=== PATIENT | male | born 1970 | race Hispanic/Latino ===

== ENCOUNTER 2017-04-15 13:31 | Observation (INO) | payer BC ==
--- NOTE | 2017-04-15 14:42 | ED PDOC ---
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 no prev sx. no cards no recent stress test or cardiac cath. Past Medical History Reviewed: Historical Data, Nursing Documentation, Vital Signs Vital Signs: Last Vital Signs Temp 97.8 F 04/15/17 13:44 Pulse 80 04/15/17 13:59 Resp 18 04/15/17 13:44 BP 137/102 H 04/15/17 13:59 Pulse Ox 97 04/15/17 14:42 - Medical History PMH: Arthritis (chronic back and shoulder pain), COPD, Fractures (right ankle fracture, left wrist fracture), Gastritis, GERD, Hyperlipidemia Denies: Chronic Kidney Disease - Family History Family History: States: Unknown Family Hx - Living Arrangements Living Arrangements: With Family - Social History Current smoker - smoking cessation education provided: No - Home Medications Home Medications: Ambulatory Orders Medication Instructions Recorded Omeprazole [Omeprazole] 40 mg PO DAILY 04/15/17 Simvastatin [Zocor] 20 mg PO HS 04/15/17 oxyCODONE [oxyCODONE Immediate 20 mg PO Q4H PRN 04/15/17 Release Tab] - Allergies Allergies/Adverse Reactions: Allergies Allergy/AdvReac Type Severity Reaction Status Date / Time No Known Allergies Allergy Verified 04/15/17 13:47 Review of Systems ROS Statement: Except As Marked, All Systems Reviewed And Found Negative Constitutional: Negative for: Fever, Chills Cardiovascular: Positive for: Chest Pain. Negative for: Palpitations Respiratory: Negative for: Cough, Shortness of Breath Gastrointestinal: Negative for: Nausea, Vomiting, Abdominal Pain Neurological: Negative for: Weakness, Numbness Physical Exam - Reviewed Nursing Documentation Reviewed: Yes Vital Signs Reviewed: Yes - Physical Exam Appears: Positive for: Uncomfortable Head Exam: Positive for: ATRAUMATIC, NORMAL INSPECTION, NORMOCEPHALIC Eye Exam: Positive for: Normal appearance, EOMI Neck: Positive for: Normal, Painless ROM, Supple Cardiovascular/Chest: Positive for: Regular Rate, Rhythm, Chest Non Tender. Negative for: Edema, Gallop, Murmur, Bradycardia, Tachycardia Respiratory: Positive for: Normal Breath Sounds. Negative for: Decreased Breath Sounds, Accessory Muscle Use, Crackles, Rales, Rhonchi, Stridor, Wheezing , Respiratory Distress Pulses-Radial (L): 2+ Pulses-Radial (R): 2+ Gastrointestinal/Abdominal: Positive for: Normal Exam, Bowel Sounds, Soft. Negative for: Tenderness Back: Positive for: Normal Inspection. Negative for: L CVA Tenderness, R CVA Tenderness Extremity: Positive for: Normal ROM. 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 Negative for: Motor/Sensory Deficits - ECG ECG: Positive for: Interpreted By Me ECG Rhythm: Positive for: Normal QRS, Normal ST Segment, Sinus Rhythm (78), ST/ T Changes (mild st elevation on 1mm in v2,) Interpretation Of Abn EKG: sent to dr ta for review with old ecg, no significant change. O2 Sat by Pulse Oximetry: 97 Pulse Ox Interpretation: Normal Disposition - Clinical Impression Clinical Impression: Acute chest pain - Patient ED Disposition Is Patient to be Admitted: No Counseled Patient/Family Regarding: Studies Performed, Diagnosis - Disposition Disposition: Transfer of Care Disposition Time: 15:00 Condition: STABLE Forms: [employer] (Georgian) Patient Signed Over To: Larry Carney
[2017-04-15 15:28] LABS: BASO # 0.1 K/uL (0.0-0.2); BASO % 0.6 % (0.0-2.0); EOS % 0.3 % (0.0-4.0); HEMOGLOBIN 15.8 g/dL (12.0-18.0); LYMPH # 4.2 K/uL (1.0-4.3); LYMPH % 34.1 % (20.0-40.0); MEAN CELL VOLUME 93.2 fl (80.0-94.0); MEAN CORPUSCULAR HEMOGLOBIN 31.4 pg (27.0-31.0); MEAN CORPUSCULAR HGB CONC 33.6 g/dL (33.0-37.0); MEAN PLATELET VOLUME 8.4 fl (7.2-11.7); MONO # 0.4 K/uL (0.0-0.8); MONO % 3.3 % (0.0-10.0); NEUT # 7.5 K/uL (1.8-7.0); NEUT % 61.7 % (50.0-75.0); NRBC % 0.2 % (0.0-0.0); RBC 5.03 Mil/uL (4.40-5.90); RED CELL DISTRIBUTION WIDTH 13.1 % (11.5-14.5); WHITE BLOOD COUNT 12.2 K/uL (4.8-10.8)
[2017-04-15 15:39] LABS: ALB/GLOB RATIO 1.4 (1.0-2.1); ALBUMIN 4.5 g/dL (3.5-5.0); ALT/SGPT 33 U/L (21-72); AST/SGOT 22 U/L (17-59); BLOOD UREA NITROGEN 15 mg/dl (9-20); GFR AFRICAN-AMERICAN > 60; GFR NON-AFRICAN AMERICAN > 60; LIPASE 168 U/L (23-300); MAGNESIUM 1.9 MG/DL (1.6-2.3)
[2017-04-15 15:50] LABS: B-TYPE NATRIURETIC PEPTIDE 25.3 pg/ml (0-450)
--- NOTE | 2017-04-15 16:05 | ED PDOC ---
- Laboratory Results Result Diagrams: 04/15/17 15:15 04/15/17 15:15 Interpretation Of Abn Labs: 12.2 wbc - ECG ECG: Positive for: Interpreted By Me, Viewed By Me ECG Rhythm: Positive for: Normal QRS, Normal ST Segment, Sinus Rhythm O2 Sat by Pulse Oximetry: 97 Pulse Ox Interpretation: Normal - Radiology X-Ray: Read By Radiologist X-Ray Interpretation: No Acute Disease - Progress ED Course And Treament: 1603: Took over care from Dr. Urban. Fu on labs and imaging. Here with chest pain. 1705: Stable. Spoke with [facility] resident. Will admit tele obs. Pt. is pain free. Hx of chol. AAOx3. Disposition - Clinical Impression Clinical Impression: Acute chest pain - POA Present On Arrival: None - Disposition Disposition: Hospitalized as Observation Patient Disposition Time: 17:05 Condition: FAIR
--- NOTE | 2017-04-15 16:06 | RAD ---
HISTORY: cp COMPARISON: Chest radiograph dated 03/28/2013. FINDINGS: LUNGS: No active pulmonary disease. PLEURA: No significant pleural effusion identified, no pneumothorax apparent. CARDIOVASCULAR: Normal. OSSEOUS STRUCTURES: Unchanged. VISUALIZED UPPER ABDOMEN: Normal. OTHER FINDINGS: None. IMPRESSION: No active disease.
[2017-04-15 16:18] LABS: URINE BILIRUBIN NEGATIVE (NEGATIVE); URINE BLOOD NEGATIVE (NEGATIVE); URINE CLARITY CLEAR (Clear); URINE COLOR YELLOW (YELLOW); URINE GLUCOSE (UA) NEG (Normal); URINE LEUKOCYTE ESTERASE NEG Leu/uL (Negative); URINE NITRATE NEGATIVE (NEGATIVE); URINE PROTEIN NEGATIVE (NEGATIVE); URINE UROBILINOGEN 0.2-1.0 mg/dL (0.2-1.0)
[2017-04-15 16:33] LABS: PARTIAL THROMBOPLASTIN TIME 38.5 Seconds (25.6-37.1); PROTHROMBIN TIME 10.5 Seconds (9.8-13.1)
[2017-04-15 16:44] LABS: OPIATES, UR POSITIVE (NEGATIVE)
[2017-04-15 16:45] LABS: PHENCYCLIDINE, UR NEGATIVE (NEGATIVE)
[2017-04-15 16:48] LABS: BARBITURATES, UR NEGATIVE (NEGATIVE); BENZODIAZEPINES, UR NEGATIVE (NEGATIVE)
--- NOTE | 2017-04-15 19:42 | CP.PCM.HP ---
<Amy Guillen - Last Filed: 04/15/17 23:40> History of Present Illness - History of Present Illness History of Present Illness: 47 yo ,m, PMhx/o COPD, heavy smoker, Chronic Arthritis of both shoulders present to ED c/o chest pain substernal started today in the afternoon 1pm at rest while he was in his office. Patient stated that chest pain started b/l subcostal and radiated to jaw, upper back and right arm, lasting for about 25 minutes, w/o associated symptoms, not related with any particular event. He denies fever, n,v,abd pain, pyrosis. Pain is not reproducible and no related with meals, deep inspiration or arms movements. Patient on evaluation in telemetry reports that pain subsided and what he needs is his pain medications for his chronic arthritis of shoulders and he reports that b/l shoulder pain is constant every day and he takes oxydodone 20 mg Q4h. reports that he has b/l rotator cuff injury. PMD: Dr Serra PMhx: COPD, heavy smoker, Chronic Arthritis Allergies: NKDA Meds: Oxydodone 20 mg Q4h, Lipitor 10 mg daily PSurgHx: R ankle, Left wrist. PSHx: +ETOH occs. No rect drugs, Heavy smoker 3PPD x 30 years. (does not want this information released to his insurance) ED Course VS: normal Labs: CBC: 12.2>15.8<282, APTT:38.5 trop x 1 neg . utox: +opioides Imaging: EKG: NSR. CXR: no active disease Present on Admission - Present on Admission Any Indicators Present on Admission: No History of DVT/PE: No History of Uncontrolled Diabetes: No Review of Systems - Cardiovascular Cardiovascular: As Per HPI, Chest Pain - Respiratory Respiratory: As Per HPI - Gastrointestinal Gastrointestinal: As Per HPI - Musculoskeletal Musculoskeletal: As Per HPI Past Patient History - Infectious Disease Hx of Infectious Diseases: None - Tetanus Immunizations Tetanus Immunization: Unknown - Past Medical History & Family History Past Medical History?: Yes - Past Social History Smoking Status: Heavy Smoker > 10 Cigarettes Daily - CARDIAC Hx Cardiac Disorders: No - PULMONARY Hx Chronic Obstructive Pulmonary Disease (COPD): Yes - NEUROLOGICAL Hx Neurological Disorder: No - HEENT Hx HEENT Problems: No - RENAL Hx Chronic Kidney Disease: No - ENDOCRINE/METABOLIC Hx Endocrine Disorders: No - HEMATOLOGICAL/ONCOLOGICAL Hx Blood Disorders: No - INTEGUMENTARY Hx Dermatological Problems: No - MUSCULOSKELETAL/RHEUMATOLOGICAL Hx Arthritis: Yes (chronic back and shoulder pain) Hx Fractures: Yes (right ankle fracture, left wrist fracture) - GASTROINTESTINAL Hx Gastritis: Yes - GENITOURINARY/GYNECOLOGICAL Hx Genitourinary Disorders: No - PSYCHIATRIC Hx Psychophysiologic Disorder: No Hx Substance Use: No - SURGICAL HISTORY Other/Comment: right ankle x3. left wrist - ANESTHESIA Hx Anesthesia: Yes Hx Anesthesia Reactions: No Hx Malignant Hyperthermia: No Meds Allergies/Adverse Reactions: Allergies Allergy/AdvReac Type Severity Reaction Status Date / Time No Known Allergies Allergy Verified 04/15/17 13:47 Physical Exam - Constitutional Appears: Non-toxic, No Acute Distress - Head Exam Head Exam: ATRAUMATIC, NORMOCEPHALIC - Eye Exam Eye Exam: Normal appearance - ENT Exam ENT Exam: Mucous Membranes Moist - Neck Exam Neck exam: Positive for: Normal Inspection - Respiratory Exam Respiratory Exam: Clear to Auscultation Bilateral. absent: Rales, Rhonchi, Wheezes - Cardiovascular Exam Cardiovascular Exam: REGULAR RHYTHM, +S1, +S2 - GI/Abdominal Exam GI & Abdominal Exam: Normal Bowel Sounds, Soft. absent: Guarding, Tenderness - Exam Exam: NORMAL INSPECTION - Extremities Exam Extremities exam: Positive for: normal inspection. Negative for: pedal edema - Neurological Exam Neurological exam: Alert, Oriented x3 - Skin Skin Exam: Intact Results - Vital Signs Recent Vital Signs: Last Vital Signs Temp 98 F 04/15/17 19:19 Pulse 742 H 04/15/17 19:19 Resp 0 L 04/15/17 19:19 BP 148/89 04/15/17 19:19 Pulse Ox 99 04/15/17 19:19 - Labs Result Diagrams: 04/15/17 15:15 04/15/17 15:15 Labs: Laboratory Results - last 24 hr 04/15/17 04/15/17 04/15/17 15:15 15:15 15:15 WBC 12.2 H RBC 5.03 Hgb 15.8 Hct 46.9 MCV 93.2 D MCH 31.4 H MCHC 33.6 RDW 13.1 Plt Count 282 MPV 8.4 Neut % (Auto) 61.7 Lymph % (Auto) 34.1 [place] % (Auto) 3.3 Eos % (Auto) 0.3 Baso % (Auto) 0.6 Neut # (Auto) 7.5 H Lymph # (Auto) 4.2 [place] # (Auto) 0.4 Eos # (Auto) 0.0 Baso # (Auto) 0.1 PT 10.5 INR 1.0 APTT 38.5 H D-Dimer, Quantitative 188 Sodium 145 Potassium 4.3 Chloride 104 Carbon Dioxide 30 Anion Gap 15 BUN 15 Creatinine 0.9 Est GFR ( Amer) > 60 Est GFR (Non-Af Amer) > 60 Random Glucose 93 Calcium 10.0 Magnesium 1.9 Total Bilirubin 0.5 AST 22 ALT 33 Alkaline Phosphatase 46 Troponin I < 0.0120 NT-Pro-B Natriuret Pep 25.3 Total Protein 7.7 Albumin 4.5 Globulin 3.2 Albumin/Globulin Ratio 1.4 Lipase 168 Urine Color Urine Clarity Urine pH Ur Specific Frakes Urine Protein Urine Glucose (UA) Urine Ketones Urine Blood Urine Nitrate Urine Bilirubin Urine Urobilinogen Ur Leukocyte Esterase Urine RBC (Auto) Urine Microscopic WBC Urine Opiates Screen Urine Methadone Screen Ur Barbiturates Screen Ur Phencyclidine Scrn Ur Amphetamines Screen U Benzodiazepines Scrn U Oth Cocaine Metabols U Cannabinoids Screen 04/15/17 04/15/17 15:50 15:50 WBC RBC Hgb Hct MCV MCH MCHC RDW Plt Count MPV Neut % (Auto) Lymph % (Auto) [place] % (Auto) Eos % (Auto) Baso % (Auto) Neut # (Auto) Lymph # (Auto) [place] # (Auto) Eos # (Auto) Baso # (Auto) PT INR APTT D-Dimer, Quantitative Sodium Potassium Chloride Carbon Dioxide Anion Gap BUN Creatinine Est GFR ( Amer) Est GFR (Non-Af Amer) Random Glucose Calcium Magnesium Total Bilirubin AST ALT Alkaline Phosphatase Troponin I NT-Pro-B Natriuret Pep Total Protein Albumin Globulin Albumin/Globulin Ratio Lipase Urine Color Yellow Urine Clarity Clear Urine pH 6.0 Ur Specific Frakes 1.011 Urine Protein Negative Urine Glucose (UA) Neg Urine Ketones Negative Urine Blood Negative Urine Nitrate Negative Urine Bilirubin Negative Urine Urobilinogen 0.2-1.0 Ur Leukocyte Esterase Neg Urine RBC (Auto) 1 Urine Microscopic WBC 1 Urine Opiates Screen Positive H Urine Methadone Screen Negative Ur Barbiturates Screen Negative Ur Phencyclidine Scrn Negative Ur Amphetamines Screen Negative U Benzodiazepines Scrn Negative U Oth Cocaine Metabols Negative U Cannabinoids Screen Negative Assessment & Plan - Assessment and Plan (Free Text) Plan: 47 yo ,m, PMhx/o COPD, heavy smoker, Chronic Arthritis of both shoulders admitted for chest pain in Observation telemetry Assessment/Plan 1)Chest Pain -atypical. 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 Recommended stress test outpatient 2) COPD -controlled -no home meds for COPD 3) Heavy smoker -Nicotine patch 21 mg daily 4) chronic arthritis shoulder -reports that he has b/l rotator cuff injury. -c/w home medications Oxydodone 5) DVT Prophylaxis -Lovenox 40 mg sc <Tommy Serra A - Last Filed: 04/16/17 06:57> Results - Vital Signs Recent Vital Signs: Last Vital Signs Temp 97.3 F L 04/16/17 05:46 Pulse 73 04/16/17 05:46 Resp 20 04/16/17 05:46 BP 113/74 04/16/17 05:46 Pulse Ox 96 04/16/17 05:46 - Labs Result Diagrams: 04/16/17 05:19 04/15/17 15:15 Labs: Laboratory Results - last 24 hr 04/15/17 04/15/17 04/15/17 15:15 15:15 15:15 WBC 12.2 H RBC 5.03 Hgb 15.8 Hct 46.9 MCV 93.2 D MCH 31.4 H MCHC 33.6 RDW 13.1 Plt Count 282 MPV 8.4 Neut % (Auto) 61.7 Lymph % (Auto) 34.1 [place] % (Auto) 3.3 Eos % (Auto) 0.3 Baso % (Auto) 0.6 Neut # (Auto) 7.5 H Lymph # (Auto) 4.2 [place] # (Auto) 0.4 Eos # (Auto) 0.0 Baso # (Auto) 0.1 PT 10.5 INR 1.0 APTT 38.5 H D-Dimer, Quantitative 188 Sodium 145 Potassium 4.3 Chloride 104 Carbon Dioxide 30 Anion Gap 15 BUN 15 Creatinine 0.9 Est GFR ( Amer) > 60 Est GFR (Non-Af Amer) > 60 Random Glucose 93 Calcium 10.0 Magnesium 1.9 Total Bilirubin 0.5 AST 22 ALT 33 Alkaline Phosphatase 46 Troponin I < 0.0120 NT-Pro-B Natriuret Pep 25.3 Total Protein 7.7 Albumin 4.5 Globulin 3.2 Albumin/Globulin Ratio 1.4 Triglycerides Cholesterol LDL Cholesterol Direct HDL Cholesterol Lipase 168 Urine Color Urine Clarity Urine pH Ur Specific Frakes Urine Protein Urine Glucose (UA) Urine Ketones Urine Blood Urine Nitrate Urine Bilirubin Urine Urobilinogen Ur Leukocyte Esterase Urine RBC (Auto) Urine Microscopic WBC Urine Opiates Screen Urine Methadone Screen Ur Barbiturates Screen Ur Phencyclidine Scrn Ur Amphetamines Screen U Benzodiazepines Scrn U Oth Cocaine Metabols U Cannabinoids Screen 04/15/17 04/15/17 04/15/17 15:50 15:50 23:05 WBC RBC Hgb Hct MCV MCH MCHC RDW Plt Count MPV Neut % (Auto) Lymph % (Auto) [place] % (Auto) Eos % (Auto) Baso % (Auto) Neut # (Auto) Lymph # (Auto) [place] # (Auto) Eos # (Auto) Baso # (Auto) PT INR APTT D-Dimer, Quantitative Sodium Potassium Chloride Carbon Dioxide Anion Gap BUN Creatinine Est GFR ( Amer) Est GFR (Non-Af Amer) Random Glucose Calcium Magnesium Total Bilirubin AST ALT Alkaline Phosphatase Troponin I < 0.0120 NT-Pro-B Natriuret Pep Total Protein Albumin Globulin Albumin/Globulin Ratio Triglycerides Cholesterol LDL Cholesterol Direct HDL Cholesterol Lipase Urine Color Yellow Urine Clarity Clear Urine pH 6.0 Ur Specific [place]kes 1.011 Urine Protein Negative Urine Glucose (UA) Neg Urine Ketones Negative Urine Blood Negative Urine Nitrate Negative Urine Bilirubin Negative Urine Urobilinogen 0.2-1.0 Ur Leukocyte Esterase Neg Urine RBC (Auto) 1 Urine Microscopic WBC 1 Urine Opiates Screen Positive H Urine Methadone Screen Negative Ur Barbiturates Screen Negative Ur Phencyclidine Scrn Negative Ur Amphetamines Screen Negative U Benzodiazepines Scrn Negative U Oth Cocaine Metabols Negative U Cannabinoids Screen Negative 04/16/17 04/16/17 04/16/17 05:19 05:19 05:19 WBC 13.4 H RBC 4.77 Hgb 14.8 Hct 44.9 MCV 94.2 H MCH 31.0 MCHC 33.0 RDW 12.8 Plt Count 260 MPV 8.5 Neut % (Auto) 55.0 Lymph % (Auto) 36.0 [place] % (Auto) 6.5 Eos % (Auto) 1.6 Baso % (Auto) 0.9 Neut # (Auto) 7.3 H Lymph # (Auto) 4.8 H [place] # (Auto) 0.9 H Eos # (Auto) 0.2 Baso # (Auto) 0.1 PT INR APTT D-Dimer, Quantitative Sodium Potassium Chloride Carbon Dioxide Anion Gap BUN Creatinine Est GFR ( Amer) Est GFR (Non-Af Amer) Random Glucose Calcium Magnesium Total Bilirubin AST ALT Alkaline Phosphatase Troponin I < 0.0120 NT-Pro-B Natriuret Pep Total Protein Albumin Globulin Albumin/Globulin Ratio Triglycerides 104 Cholesterol 179 LDL Cholesterol Direct 106 HDL Cholesterol 44 Lipase Urine Color Urine Clarity Urine pH Ur Specific Frakes Urine Protein Urine Glucose (UA) Urine Ketones Urine Blood Urine Nitrate Urine Bilirubin Urine Urobilinogen Ur Leukocyte Esterase Urine RBC (Auto) Urine Microscopic WBC Urine Opiates Screen Urine Methadone Screen Ur Barbiturates Screen Ur Phencyclidine Scrn Ur Amphetamines Screen U Benzodiazepines Scrn U Oth Cocaine Metabols U Cannabinoids Screen Attending/Attestation - Attestation I have personally seen and examined this patient.: Yes I have fully participated in the care of the patient.: Yes I have reviewed all pertinent clinical information: Yes
[2017-04-15] MEDS: oxyCODONE 10 mg Immediate Release Tab PO PRN (20:14)
[2017-04-16] MEDS: oxyCODONE 10 mg Immediate Release Tab PO PRN ×2 (00:59→07:05)
[2017-04-16 05:47] VITALS: RESP 20
[2017-04-16 05:56] LABS: BASO # 0.1 K/uL (0.0-0.2); BASO % 0.9 % (0.0-2.0); EOS # 0.2 K/uL (0.0-0.7); EOS % 1.6 % (0.0-4.0); HEMOGLOBIN 14.8 g/dL (12.0-18.0); LYMPH # 4.8 K/uL (1.0-4.3); MEAN CELL VOLUME 94.2 fl (80.0-94.0); MEAN PLATELET VOLUME 8.5 fl (7.2-11.7); MONO # 0.9 K/uL (0.0-0.8); MONO % 6.5 % (0.0-10.0); NEUT # 7.3 K/uL (1.8-7.0); NRBC % 0.1 % (0.0-0.0); RBC 4.77 Mil/uL (4.40-5.90); RED CELL DISTRIBUTION WIDTH 12.8 % (11.5-14.5); WHITE BLOOD COUNT 13.4 K/uL (4.8-10.8)
[2017-04-16 06:10] LABS: HDL CHOLESTEROL 44 MG/DL (30-70)
[2017-04-16 06:21] LABS: LDL CHOLESTEROL 106 mg/dL (0-129)
[2017-04-16 08:36] VITALS: BP 122/89; PULSE 89; TEMP 98.6
[2017-04-16] MEDS ORDERED: Pantoprazole 40 mg EC Tab PO SCH (09:00)
[2017-04-16] MEDS ORDERED: Enoxaparin 40 mg Syringe SC SCH (09:00)
[2017-04-16 09:57] VITALS: O2SAT 100
--- NOTE | 2017-04-16 11:25 | CARD ---
APPROVED REPORT EKG Measurement Heart [id number] <Conclusion> Normal sinus rhythm Normal ECG
--- NOTE | 2017-04-16 11:29 | CARD ---
APPROVED REPORT EKG Measurement Heart [id number] <Conclusion> Normal sinus rhythm Normal ECG
--- NOTE | 2017-04-16 12:06 | CP.PCM.DIS ---
<Abel Ortega - Last Filed: 04/16/17 12:03> Provider - Provider Date of Admission: 04/15/17 17:03 Attending physician: Tommy Bentley MD Time Spent in preparation of Discharge (in minutes): 15 Hospital Course - Lab Results Lab Results: Most Recent Lab Values WBC 13.4 K/uL (4.8-10.8) H 04/16/17 05:19 RBC 4.77 Mil/uL (4.40-5.90) 04/16/17 05:19 Hgb 14.8 g/dL (12.0-18.0) 04/16/17 05:19 Hct 44.9 % (35.0-51.0) 04/16/17 05:19 MCV 94.2 fl (80.0-94.0) H 04/16/17 05:19 MCH 31.0 pg (27.0-31.0) 04/16/17 05:19 MCHC 33.0 g/dL (33.0-37.0) 04/16/17 05:19 RDW 12.8 % (11.5-14.5) 04/16/17 05:19 Plt Count 260 K/uL (130-400) 04/16/17 05:19 MPV 8.5 fl (7.2-11.7) 04/16/17 05:19 Neut % (Auto) 55.0 % (50.0-75.0) 04/16/17 05:19 Lymph % (Auto) 36.0 % (20.0-40.0) 04/16/17 05:19 [place] % (Auto) 6.5 % (0.0-10.0) 04/16/17 05:19 Eos % (Auto) 1.6 % (0.0-4.0) 04/16/17 05:19 Baso % (Auto) 0.9 % (0.0-2.0) 04/16/17 05:19 Neut # (Auto) 7.3 K/uL (1.8-7.0) H 04/16/17 05:19 Lymph # (Auto) 4.8 K/uL (1.0-4.3) H 04/16/17 05:19 [place] # (Auto) 0.9 K/uL (0.0-0.8) H 04/16/17 05:19 Eos # (Auto) 0.2 K/uL (0.0-0.7) 04/16/17 05:19 Baso # (Auto) 0.1 K/uL (0.0-0.2) 04/16/17 05:19 PT 10.5 Seconds (9.8-13.1) 04/15/17 15:15 INR 1.0 (0.9-1.2) 04/15/17 15:15 APTT 38.5 Seconds (25.6-37.1) H 04/15/17 15:15 D-Dimer, Quantitative 188 ng/mlDDU (0-230) 04/15/17 15:15 Sodium 145 mmol/l (132-148) 04/15/17 15:15 Potassium 4.3 MMOL/L (3.6-5.0) 04/15/17 15:15 Chloride 104 mmol/L (98-107) 04/15/17 15:15 Carbon Dioxide 30 mmol/L (22-30) 04/15/17 15:15 Anion Gap 15 (10-20) 04/15/17 15:15 BUN 15 mg/dl (9-20) 04/15/17 15:15 Creatinine 0.9 mg/dl (0.8-1.5) 04/15/17 15:15 Est GFR ( Amer) > 60 04/15/17 15:15 Est GFR (Non-Af Amer) > 60 04/15/17 15:15 Random Glucose 93 mg/dL (75-110) 04/15/17 15:15 Calcium 10.0 mg/dL (8.4-10.2) 04/15/17 15:15 Magnesium 1.9 MG/DL (1.6-2.3) 04/15/17 15:15 Total Bilirubin 0.5 mg/dl (0.2-1.3) 04/15/17 15:15 AST 22 U/L (17-59) 04/15/17 15:15 ALT 33 U/L (21-72) 04/15/17 15:15 Alkaline Phosphatase 46 U/L (38-126) 04/15/17 15:15 Troponin I < 0.0120 ng/mL (0.00-0.120) 04/16/17 05:19 NT-Pro-B Natriuret Pep 25.3 pg/ml (0-450) 04/15/17 15:15 Total Protein 7.7 G/DL (6.3-8.2) 04/15/17 15:15 Albumin 4.5 g/dL (3.5-5.0) 04/15/17 15:15 Globulin 3.2 gm/dL (2.2-3.9) 04/15/17 15:15 Albumin/Globulin Ratio 1.4 (1.0-2.1) 04/15/17 15:15 Triglycerides 104 mg/DL (0-149) 04/16/17 05:19 Cholesterol 179 mg/dL (0-199) 04/16/17 05:19 LDL Cholesterol Direct 106 mg/dL (0-129) 04/16/17 05:19 HDL Cholesterol 44 MG/DL (30-70) 04/16/17 05:19 Lipase 168 U/L (23-300) 04/15/17 15:15 Urine Color Yellow (YELLOW) 04/15/17 15:50 Urine Clarity Clear (Clear) 04/15/17 15:50 Urine pH 6.0 (5.0-8.0) 04/15/17 15:50 Ur Specific [place] 1.011 (1.003-1.030) 04/15/17 15:50 Urine Protein Negative mg/dL (NEGATIVE) 04/15/17 15:50 Urine Glucose (UA) Neg mg/dL (Normal) 04/15/17 15:50 Urine Ketones Negative mg/dL (NEGATIVE) 04/15/17 15:50 Urine Blood Negative (NEGATIVE) 04/15/17 15:50 Urine Nitrate Negative (NEGATIVE) 04/15/17 15:50 Urine Bilirubin Negative (NEGATIVE) 04/15/17 15:50 Urine Urobilinogen 0.2-1.0 mg/dL (0.2-1.0) 04/15/17 15:50 Ur Leukocyte Esterase Neg [place]/uL (Negative) 04/15/17 15:50 Urine RBC (Auto) 1 /hpf (0-3) 04/15/17 15:50 Urine Microscopic WBC 1 /hpf (0-5) 04/15/17 15:50 Urine Opiates Screen Positive (NEGATIVE) H 04/15/17 15:50 Urine Methadone Screen Negative (NEGATIVE) 04/15/17 15:50 Ur Barbiturates Screen Negative (NEGATIVE) 04/15/17 15:50 Ur Phencyclidine Scrn Negative (NEGATIVE) 04/15/17 15:50 Ur Amphetamines Screen Negative (NEGATIVE) 04/15/17 15:50 U Benzodiazepines Scrn Negative (NEGATIVE) 04/15/17 15:50 U Oth Cocaine Metabols Negative (NEGATIVE) 04/15/17 15:50 U Cannabinoids Screen Negative (NEGATIVE) 04/15/17 15:50 - Hospital Course Hospital Course: 47 y/o man w/ pmh of COPD, heavy smoker, Chronic Arthritis of both shoulders presented to ED w/ complaint of chest pain substernal which started afternoon of 04/15 while at rest in his office. The patient had normal VS, EKG NSR, CXR no active disease, elevated WBC but otherwise normal CBC, CMP WNL, negative troponin x3. Patient reports improvement. Patient seen this morning and has no complaints. The patient states that he desires to go home because he has work today. The patient was counseled to be seen prior to discharge by cardiology. The patient declined clearance and opted to leave AMA. The patient was seen, examined, and was not cleared for discharge home despite risks involved. Patient was explained the risks of leaving AMA, understood the risks, and still desired to leave AMA. Discharge Exam - Head Exam Head Exam: ATRAUMATIC, NORMOCEPHALIC - Eye Exam Eye Exam: Normal appearance - ENT Exam ENT Exam: Mucous Membranes Moist - Respiratory Exam Respiratory Exam: Clear to PA & Lateral, UNREMARKABLE. absent: Decreased Breath Sounds, Rales, Rhonchi, Wheezes, Respiratory Distress - Cardiovascular Exam Cardiovascular Exam: REGULAR RHYTHM. absent: Tachycardia - GI/Abdominal Exam GI & Abdominal Exam: Normal Bowel Sounds, Soft. absent: Distended, Tenderness - Extremities Exam Extremities exam: normal inspection - Neurological Exam Neurological exam: Alert, Normal Gait, Oriented x3 Discharge Plan - Follow Up Plan Condition: FAIR Disposition: AGAINST MEDICAL ADVICE <Tommy Bentley - Last Filed: 04/19/17 07:24> Provider - Provider Date of Admission: 04/15/17 17:03 Attending physician: Tommy Bentley MD Hospital Course - Lab Results Lab Results: Micro Results 04/15/17 15:50 Urine,Clean Catch Urine Culture - Final No Growth (<1,000 CFU/ML) Most Recent Lab Values WBC 13.4 K/uL (4.8-10.8) H 04/16/17 05:19 RBC 4.77 Mil/uL (4.40-5.90) 04/16/17 05:19 Hgb 14.8 g/dL (12.0-18.0) 04/16/17 05:19 Hct 44.9 % (35.0-51.0) 04/16/17 05:19 MCV 94.2 fl (80.0-94.0) H 04/16/17 05:19 MCH 31.0 pg (27.0-31.0) 04/16/17 05:19 MCHC 33.0 g/dL (33.0-37.0) 04/16/17 05:19 RDW 12.8 % (11.5-14.5) 04/16/17 05:19 Plt Count 260 K/uL (130-400) 04/16/17 05:19 MPV 8.5 fl (7.2-11.7) 04/16/17 05:19 Neut % (Auto) 55.0 % (50.0-75.0) 04/16/17 05:19 Lymph % (Auto) 36.0 % (20.0-40.0) 04/16/17 05:19 [place] % (Auto) 6.5 % (0.0-10.0) 04/16/17 05:19 Eos % (Auto) 1.6 % (0.0-4.0) 04/16/17 05:19 Baso % (Auto) 0.9 % (0.0-2.0) 04/16/17 05:19 Neut # (Auto) 7.3 K/uL (1.8-7.0) H 04/16/17 05:19 Lymph # (Auto) 4.8 K/uL (1.0-4.3) H 04/16/17 05:19 [place] # (Auto) 0.9 K/uL (0.0-0.8) H 04/16/17 05:19 Eos # (Auto) 0.2 K/uL (0.0-0.7) 04/16/17 05:19 Baso # (Auto) 0.1 K/uL (0.0-0.2) 04/16/17 05:19 PT 10.5 Seconds (9.8-13.1) 04/15/17 15:15 INR 1.0 (0.9-1.2) 04/15/17 15:15 APTT 38.5 Seconds (25.6-37.1) H 04/15/17 15:15 D-Dimer, Quantitative 188 ng/mlDDU (0-230) 04/15/17 15:15 Sodium 145 mmol/l (132-148) 04/15/17 15:15 Potassium 4.3 MMOL/L (3.6-5.0) 04/15/17 15:15 Chloride 104 mmol/L (98-107) 04/15/17 15:15 Carbon Dioxide 30 mmol/L (22-30) 04/15/17 15:15 Anion Gap 15 (10-20) 04/15/17 15:15 BUN 15 mg/dl (9-20) 04/15/17 15:15 Creatinine 0.9 mg/dl (0.8-1.5) 04/15/17 15:15 Est GFR ( Amer) > 60 04/15/17 15:15 Est GFR (Non-Af Amer) > 60 04/15/17 15:15 Random Glucose 93 mg/dL (75-110) 04/15/17 15:15 Calcium 10.0 mg/dL (8.4-10.2) 04/15/17 15:15 Magnesium 1.9 MG/DL (1.6-2.3) 04/15/17 15:15 Total Bilirubin 0.5 mg/dl (0.2-1.3) 04/15/17 15:15 AST 22 U/L (17-59) 04/15/17 15:15 ALT 33 U/L (21-72) 04/15/17 15:15 Alkaline Phosphatase 46 U/L (38-126) 04/15/17 15:15 Troponin I < 0.0120 ng/mL (0.00-0.120) 04/16/17 05:19 NT-Pro-B Natriuret Pep 25.3 pg/ml (0-450) 04/15/17 15:15 Total Protein 7.7 G/DL (6.3-8.2) 04/15/17 15:15 Albumin 4.5 g/dL (3.5-5.0) 04/15/17 15:15 Globulin 3.2 gm/dL (2.2-3.9) 04/15/17 15:15 Albumin/Globulin Ratio 1.4 (1.0-2.1) 04/15/17 15:15 Triglycerides 104 mg/DL (0-149) 04/16/17 05:19 Cholesterol 179 mg/dL (0-199) 04/16/17 05:19 LDL Cholesterol Direct 106 mg/dL (0-129) 04/16/17 05:19 HDL Cholesterol 44 MG/DL (30-70) 04/16/17 05:19 Lipase 168 U/L (23-300) 04/15/17 15:15 Urine Color Yellow (YELLOW) 04/15/17 15:50 Urine Clarity Clear (Clear) 04/15/17 15:50 Urine pH 6.0 (5.0-8.0) 04/15/17 15:50 Ur Specific [place] 1.011 (1.003-1.030) 04/15/17 15:50 Urine Protein Negative mg/dL (NEGATIVE) 04/15/17 15:50 Urine Glucose (UA) Neg mg/dL (Normal) 04/15/17 15:50 Urine Ketones Negative mg/dL (NEGATIVE) 04/15/17 15:50 Urine Blood Negative (NEGATIVE) 04/15/17 15:50 Urine Nitrate Negative (NEGATIVE) 04/15/17 15:50 Urine Bilirubin Negative (NEGATIVE) 04/15/17 15:50 Urine Urobilinogen 0.2-1.0 mg/dL (0.2-1.0) 04/15/17 15:50 Ur Leukocyte Esterase Neg [place]/uL (Negative) 04/15/17 15:50 Urine RBC (Auto) 1 /hpf (0-3) 04/15/17 15:50 Urine Microscopic WBC 1 /hpf (0-5) 04/15/17 15:50 Urine Opiates Screen Positive (NEGATIVE) H 04/15/17 15:50 Urine Methadone Screen Negative (NEGATIVE) 04/15/17 15:50 Ur Barbiturates Screen Negative (NEGATIVE) 04/15/17 15:50 Ur Phencyclidine Scrn Negative (NEGATIVE) 04/15/17 15:50 Ur Amphetamines Screen Negative (NEGATIVE) 04/15/17 15:50 U Benzodiazepines Scrn Negative (NEGATIVE) 04/15/17 15:50 U Oth Cocaine Metabols Negative (NEGATIVE) 04/15/17 15:50 U Cannabinoids Screen Negative (NEGATIVE) 04/15/17 15:50 Attending/Attestation - Attestation I have personally seen and examined this patient.: Yes I have fully participated in the care of the patient.: Yes I have reviewed all pertinent clinical information, including history, physical exam and plan: Yes
== END 2017-04-16 09:50 | disposition left against medical advice (07) ==
LOC: H.ER 13:31 → H.ERHOLD 17:03 → H.TEL 18:58
PROVIDERS: ADMIT Family Medicine; ATTEND Family Medicine
DX: R07.89 Other chest pain (principal); K21.9 Gastro-esophageal reflux disease without esophagitis; K29.70 Gastritis, unspecified, without bleeding; J44.9 Chronic obstructive pulmonary disease, unspecified; E78.5 Hyperlipidemia, unspecified; G89.29 Other chronic pain; F17.210 Nicotine dependence, cigarettes, uncomplicated; M19.011 Primary osteoarthritis, right shoulder; M19.012 Primary osteoarthritis, left shoulder
CPT/HCPCS: 36415; 71045; 80053; 80061; 81003; 83690; 83735; 83880; 84484; 85025; 85378; 85610; 85730; 87086; 93005; 99285; G0378; G0480